=== PATIENT | female | born 1970 | race Caucasian/White ===

== ENCOUNTER 2022-12-14 14:51 | Emergency (ER) | payer OTHER ==
[2022-12-14] MEDS ORDERED: ROPIVACAINE 0.5% PF 30 ML VIAL SUBQ STA (15:49)
[2022-12-14] MEDS ORDERED: BUFFERED LIDOCAINE 10 ML SYRINGE SUBQ STA (15:50)
[2022-12-14] MEDS ORDERED: BUPIVACAINE 0.5% PF 10 ML VIAL SUBQ STA (15:59)
--- NOTE | 2022-12-14 16:02 | ED Physician Documentation ---
PD HPI UPPER EXT INJURY - Stated complaint Stated Complaint: RT ARM PX - Chief complaint Chief Complaint: Trauma Ext - History obtained from History obtained from: Patient, Family - History of Present Illness Location: Right, Wrist Type of injury: Fall Pain level max: 8 Pain level now: 8 Improved by: Rest, Ice, Immobilization Worsened by: Moving, Palpating Associated symptoms: No: Weakness, Numbness, Tingling, Swelling Contributing factors: No: Anticoagulated, Prior ortho surgery - Additonal information Additional information: Patient is a 52-year-old female who presents to the emergency department with a right wrist injury. She is left-handed. She was walking the dog today when the dog pulled, she tripped and fell landing on the outstretched hand. Has deformity to the right wrist. Worse with movement, better with rest. No numbness or tingling. Review of Systems Constitutional: denies: Fever, Chills GI: denies: Vomiting, Diarrhea Skin: denies: Rash Musculoskeletal: denies: Neck pain, Back pain Neurologic: denies: Headache PD PAST MEDICAL HISTORY - Past Medical History Past Medical History: No - Past Surgical History Past Surgical History: No - Present Medications Home Medications: Ambulatory Orders Medication Instructions Recorded Confirmed HYDROcod/ACETAM 5/325 [[place] 5/325] 1 - 2 ea PO Q6H PRN #14 tablet 12/14/22 - Allergies Allergies/Adverse Reactions: Allergies Allergy/AdvReac Type Severity Reaction Status Date / Time No Known Drug Allergies Allergy Verified 12/14/22 14:58 - Living Situation Living Situation: reports: With family Living Arrangement: reports: At home - Social History Does the pt have substance abuse?: No - Family History Family history: reports: Non contributory PD ED PE NORMAL - Vitals Vital signs reviewed: Yes - General General: Alert and oriented X 3, No acute distress - HEENT HEENT: Moist mucous membranes - Neck Neck: Supple, no meningeal sign - Derm Derm: Warm and dry - Extremities Extremities: Other (R wrist - Tender to palpation over the right distal radius. Neurovascular intact. Otherwise normal exam of the forearm, wrist and hand.) - Neuro Neuro: Alert and oriented X 3 - Psych Psych: Normal mood, Normal affect Results - Vitals Vitals: Vital Signs - 24 hr 12/14/22 12/14/22 14:58 17:17 Temperature 36.5 C Heart Rate 70 81 Respiratory 18 16 Rate Blood Pressure 100/63 110/65 O2 Saturation 98 98 Oxygen O2 Source Room air - Rads (name of study) Right wrist x-ray Relevant Findings:: Final report received, See rad report R wrist post reduction Relevant Findings:: Final report received, See rad report Procedures - Splint (location) - Minor R arm Splint applied by: Physician, Tech Type of splint: Fiberglass, Sugar tong Other: Patient tolerated well, No complications, Neurovascular intact, Good alignment, Sling provided - Reduction Body part reduced: Right, Wrist Fracture or dislocation: Fracture Anesthesia: Hematoma block, Lidocaine (enter cc) (2), Marcaine (enter cc) (10) Reduction aftercare: NV intact, Xray confirms reduction, Alignment improved, Splint applied, Sling, Patient tolerated well PD Medical Decision Making - ED course Complexity details: reviewed results, re-evaluated patient, considered differential, d/w patient, d/w family ED course: Patient is a 52-year-old female status post a ground-level fall in which she suffered a comminuted intra-articular dorsally displaced distal radius fracture. Hematoma block was performed, excellent anesthesia achieved. The fracture was then reduced under closed reduction. Her arm was then placed into a sugar-tong splint. Neurovascular intact. Repeat x-ray confirms reduction. We will have her follow-up with a hand surgeon for further care. Patient counseled regarding signs and symptoms for which I believe and urgent re-evaluation would be necessary. Patient with good understanding of and agreement to plan and is comfortable going home at this time This document was made in part using voice recognition software. While efforts are made to proofread this document, sound alike and grammatical errors may occur. Departure - Departure Disposition: 01 Home, Self Care Clinical Impression: Distal radius fracture, right Qualifiers: Encounter type: initial encounter Fracture type: closed Fracture morphology: unspecified fracture morphology Qualified Code(s): S52.501A - Unspecified fracture of the lower end of right radius, initial encounter for closed fracture Condition: Good Instructions: ED Fx Forearm Radius Ulna Redu Requ Follow-Up: [facility] [Provider Group] [facility] [Provider Group] Prescriptions: HYDROcod/ACETAM 5/325 [[place] 5/325] 1 - 2 ea PO Q6H PRN #14 tablet PRN Reason: Pain Comments: Your fracture was reduced and splinted today. These fractures often will need surgery, I recommend that you follow-up closely with a hand surgeon. The closest hand surgeons are at [facility] in [place] or at [facility] in [place] with the [facility]. Please call for an appointment. [facility] in [place]. I am prescribing a short course of narcotic pain medication for you. These are potentially dangerous and addictive medications that should be used carefully. These medications may constipate you. Take an usas-yic-vyqtzrx stool softener (docusate) twice daily with plenty of water while taking these medications. If you go 24 hours without a bowel movement, take numq-rxj-saxsglv miralax, per package instructions. Do not drink or drive while taking these medications. If you received narcotic or sedating medications while in the emergency department, do not drive for 24 hours. Store this medication in a safe, secure place and out of reach of children. It is a violation of federal law to give or sell this medication to another person or to use in a manner other than prescribed. The ED will not refill narcotic prescriptions, including prescriptions lost or stolen. To dispose of unwanted medications: 1. [facility] [address] in [place] has a medication drop box. They accept prescription medications (in pill form) Sunday through Sunday 9:00 a.m. to 5:00 p.m. 2. The [facility] [employer] accepts prescription medications (in pill form only) for disposal year round. Call for more information. 3. Contact the [facility] for the next [facility] sponsored prescription drug collection event. , [phone], or [phone]; XRAY: Comminuted intra-articular fracture of the distal radius with dorsal angulation. Forms: PCP List Discharge Date/Time: 12/14/22 17:20
[2022-12-14] MEDS ORDERED: oxyCODONE 5 MG TABLET PO STA (16:05)
--- NOTE | 2022-12-14 16:11 | XRAY Report ---
PROCEDURE: Wrist 4 View RT INDICATIONS: Trauma TECHNIQUE: 3 views of the wrist were acquired. COMPARISON: None. FINDINGS: Bones: Comminuted intra-articular fracture of the distal radius is seen with dorsal angulation. No d efinite distal ulnar fracture is seen. The remaining wrist bones appear to be intact. Degenerative ch anges are seen at the 1st carpal metacarpal joint. Soft tissues: No suspicious soft tissue calcifications or masses. IMPRESSION: Comminuted intra-articular fracture of the distal radius with dorsal angulation. Reviewed by: Jose Haines MD on 12/14/2022 4:10 PM PDT Approved by: Jose Haines MD on 12/14/2022 4:10 PM PDT Station ID: [id number]
--- NOTE | 2022-12-14 16:59 | XRAY Report ---
PROCEDURE: Wrist 2 View RT INDICATIONS: post reduction TECHNIQUE: 3 views of the wrist were acquired. COMPARISON: X-ray wrist 12/14/2022. FINDINGS: Bones: There is been interval reduction of distal radial fracture. There is improved anatomic alignm ent. No suspicious bony lesions. Soft tissues: No suspicious soft tissue calcifications or masses. IMPRESSION: Improved anatomic alignment of distal radial fracture. Reviewed by: Lyly Werner MD on 12/14/2022 4:58 PM PDT Approved by: Lyly Werner MD on 12/14/2022 4:58 PM PDT Station ID: [id number]
[2022-12-14 17:17] VITALS: BP 110/65
== END 2022-12-14 17:20 | disposition home or self-care (01) ==
LOC: ED 14:51
DX: S52.571A Other intraarticular fracture of lower end of right radius, initial encounter for closed fracture (principal); W01.0XXA Fall on same level from slipping, tripping and stumbling without subsequent striking against object, initial encounter; Y93.K1 Activity, walking an animal
CPT/HCPCS: 25605; 73100; 73110; 99283; A9270